=== PATIENT | female | born 2000 | race Caucasian/White ===

== ENCOUNTER 2022-08-13 13:48 | Emergency (ER) | payer MEDICAID ==
[~2022-08-13] VITALS: Ht 165.1 cm; Wt 93.9 kg
[2022-08-13 14:19] VITALS: BP 144/108
--- NOTE | 2022-08-13 15:00 | NUR ---
C/O 10/10 GENERALIZED ABDOMINAL PAIN, N/V/D X 1 WEEK. PMH:DENIES
[2022-08-13 15:23] LABS: BASOPHILS # (AUTO) 0.1 K/uL (0.00-0.22); BASOPHILS % (AUTO) 0.6 % (0.0-2.0); EOSINOPHILS % (AUTO) 0.4 % (0.0-4.0); HEMATOCRIT 42.9 % (36-48); HEMOGLOBIN 14.7 g/dL (12.0-16.0); LYMPHOCYTES # (AUTO) 2.5 K/uL (2.5-16.5); LYMPHOCYTES % (AUTO) 26.8 % (20.5-51.1); MEAN CORPUSCULAR HEMOGLOBIN 30 pg (27-31); MEAN CORPUSCULAR HGB CONC 34 g/dL (33-37); MEAN CORPUSCULAR VOLUME 88.3 fL (80-94); MONOCYTES # (AUTO) 0.6 K/uL (0.8-1.0); MONOCYTES % (AUTO) 6.4 % (1.7-9.3); NEUTROPHILS # (AUTO) 6.2 K/uL (1.8-7.7); NEUTROPHILS % (AUTO) 65.8 % (42.2-75.2); PLATELET COUNT (AUTO) 368 K/uL (140-450); RED BLOOD CELL COUNT(AUTO) 4.86 MIL/uL (4.20-5.40); RED CELL DISTRIBUTION WIDTH 12.8 % (11.6-13.7); WHITE BLOOD COUNT (AUTO) 9.4 K/uL (4.8-10.8)
[2022-08-13 15:37] LABS: APPEARANCE,URINE CLEAR (CLEAR); BILIRUBIN,URINE MODERATE (NEGATIVE); BLOOD, URINE NEGATIVE (NEGATIVE); NITRITE, URINE NEGATIVE (NEGATIVE); PH,URINE 6.5 (5.0-9.0); UGLUCOSE NEGATIVE (NEGATIVE)
[2022-08-13 15:39] LABS: COLOR,URINE AMBER (YELLOW); LEUKOCYTE ESTERASE ,URINE 2+ (NEGATIVE)
[2022-08-13 15:45] LABS: ALBUMIN 4.6 g/dL (3.4-5.0); ANION GAP 16.3 (8-16); CARBON DIOXIDE 26.7 mmol/L (21-32); CREATININE 0.8 mg/dL (0.6-1.3); TOTAL BILIRUBIN 0.8 mg/dL (0.0-1.0)
[2022-08-13 15:49] LABS: RBC,URINE NONE SEEN /HPF (0-5); WBC,URINE 20-60 /HPF (0-5)
[2022-08-13] MEDS ORDERED: ONDA-188 SL (17:13)
[2022-08-13] MEDS ORDERED: NITR100C7 PO (17:13)
[2022-08-13] MEDS ORDERED: NITROFURANTOIN 100 MG CAP PO ONE (17:15)
[2022-08-13] MEDS ORDERED: NITROFURANTOIN 100 MG CAP ONE (17:19)
[2022-08-13 17:23] VITALS: BP 144/108
--- NOTE | 2022-08-13 17:25 | NUR ---
Patient discharged with v/s stable. Written and verbal after care instructions given and explained. Patient alert, oriented and verbalized understanding of instructions. Ambulatory with steady gait. All questions addressed prior to discharge. ID band removed. Patient advised to follow up with PMD. Rx of MACROBID, ZOFRAN given. Patient educated on indication of medication including possible reaction and side effects. Opportunity to ask questions provided and answered.
== END 2022-08-13 17:23 | disposition home or self-care (01) ==
LOC: MED 13:48
DX: K52.9 Noninfective gastroenteritis and colitis, unspecified (principal); N39.0 Urinary tract infection, site not specified
CPT/HCPCS: 36415; 80053; 81001; 81025; 85025; 87086; 99283

== ENCOUNTER 2022-09-23 15:38 | Emergency (ER) | payer MEDICAID ==
[~2022-09-23] VITALS: Ht 165.1 cm; Wt 94.8 kg
[~2022-09-23 15:38] MED LIST: NITR100C7 PO; ONDA-188 SL
[2022-09-23 16:16] VITALS: BP 134/86
--- NOTE | 2022-09-23 16:21 | NUR ---
DOMINGUEZ. HANDED ON URINE CUP.
--- NOTE | 2022-09-23 16:40 | NUR ---
BIB SELF C/O VAGINAL BLEEDING, 710 LOWER ABD CRAMPING X TODAY. 9 WEEKS . LMP 07/27/22. VOMITED YESTERDAY.
[2022-09-23 16:58] LABS: APPEARANCE,URINE CLEAR (CLEAR); BILIRUBIN,URINE NEGATIVE (NEGATIVE); BLOOD, URINE 3+ (NEGATIVE); COLOR,URINE YELLOW (YELLOW); LEUKOCYTE ESTERASE ,URINE NEGATIVE (NEGATIVE); NITRITE, URINE NEGATIVE (NEGATIVE); UGLUCOSE NEGATIVE (NEGATIVE)
--- NOTE | 2022-09-23 17:54 | NUR ---
Elba rice in [facility] - 09/23/22 at 1755 by JOSE D MUSTAPHA AT THIS TIME
[2022-09-23 17:56] LABS: BASOPHILS # (AUTO) 0.1 K/uL (0.00-0.22); BASOPHILS % (AUTO) 0.8 % (0.0-2.0); EOSINOPHILS # (AUTO) 0.1 K/uL (0-0.4); HEMATOCRIT 37.7 % (36-48); HEMOGLOBIN 13.1 g/dL (12.0-16.0); LYMPHOCYTES % (AUTO) 19.2 % (20.5-51.1); MEAN CORPUSCULAR HEMOGLOBIN 30 pg (27-31); MEAN CORPUSCULAR HGB CONC 35 g/dL (33-37); MEAN CORPUSCULAR VOLUME 87.1 fL (80-94); MONOCYTES # (AUTO) 0.6 K/uL (0.8-1.0); NEUTROPHILS # (AUTO) 7.7 K/uL (1.8-7.7); PLATELET COUNT (AUTO) 336 K/uL (140-450); RED BLOOD CELL COUNT(AUTO) 4.32 MIL/uL (4.20-5.40); RED CELL DISTRIBUTION WIDTH 12.9 % (11.6-13.7); WHITE BLOOD COUNT (AUTO) 10.6 K/uL (4.8-10.8)
[2022-09-23 18:36] LABS: WBC,URINE 0 /HPF (0-5)
[2022-09-23 19:08] VITALS: BP 134/86
--- NOTE | 2022-09-23 19:08 | NUR ---
Patient discharged with v/s stable. Written and verbal after care instructions given and explained. Patient verbalized understanding. Ambulatory with steady gait. All questions addressed prior to discharge. Advised to follow up with PMD.
[2022-09-23 19:12] LABS: ANION GAP 12.8 (8-16); CARBON DIOXIDE 26.7 mmol/L (21-32); CREATININE 0.7 mg/dL (0.6-1.3); POTASSIUM 3.5 mmol/L (3.5-5.1)
[2022-09-23 19:28] LABS: ALBUMIN 3.7 g/dL (3.4-5.0); TOTAL BILIRUBIN 0.4 mg/dL (0.0-1.0)
== END 2022-09-23 19:08 | disposition home or self-care (01) ==
LOC: MED 15:38
DX: O46.91 Antepartum hemorrhage, unspecified, first trimester (principal); Z3A.01 Less than 8 weeks gestation of pregnancy; Z79.899 Other long term (current) drug therapy; Z79.2 Long term (current) use of antibiotics
CPT/HCPCS: 36415; 76817; 80053; 81001; 81025; 84702; 85025; 86886; 86900; 86901; 99284; Q0092

== ENCOUNTER 2023-03-06 11:00 | Emergency (ER) | payer MEDICAID ==
[~2023-03-06] VITALS: Ht 165.1 cm; Wt 95.3 kg
[2023-03-06 11:10] VITALS: BP 121/74; PULSE 99; RESP 20; TEMP 98; O2SAT 99
[2023-03-06 12:24] LABS: FLU A ANTIGEN negative (NEGATIVE)
[2023-03-06 12:25] LABS: FLU B ANTIGEN NEGATIVE (NEGATIVE)
[2023-03-06 12:57] VITALS: TEMP 98
[2023-03-06] MEDS ORDERED: ACET-9882 PO (12:59)
[2023-03-06] MEDS ORDERED: DIPH-670 PO (12:59)
[2023-03-06] MEDS ORDERED: CEPH-588 PO (12:59)
[2023-03-06] MEDS ORDERED: NIRM1TAB PO (12:59)
[2023-03-06 13:09] VITALS: BP 109/74; PULSE 74; RESP 17; O2SAT 99
== END 2023-03-06 13:09 | disposition home or self-care (01) ==
LOC: MED 11:00
DX: O99.513 Diseases of the respiratory system complicating pregnancy, third trimester (principal); Z20.822 Contact with and (suspected) exposure to COVID-19; O23.43 Unspecified infection of urinary tract in pregnancy, third trimester; N39.0 Urinary tract infection, site not specified; R03.0 Elevated blood-pressure reading, without diagnosis of hypertension; Z3A.30 30 weeks gestation of pregnancy
CPT/HCPCS: 87086; 99283